=== PATIENT | female | born 1985 | race Caucasian/White ===

== ENCOUNTER → 2017-04-05 03:47 | Observation (INO) ==
[2017-04-05 00:57] LABS: Bilirubin,Urine Negative (Negative); Blood,Urine Negative (Negative); Clarity,Urine Cloudy (Clear); Color,Urine Yellow (Yellow); Glucose,Urine (UA) Normal (Normal); Ketones,Urine Negative (Negative); Leukocyte Esterase,Urine Small (Negative); Nitrite,Urine Negative (Negative); Protein,Urine Negative (Neg-Trace); Urobilinogen,Urine Normal (Normal)
[2017-04-05 01:00] LABS: Bacteria,Urine Few per hpf (None-Few); Hyaline Casts,Urine None Seen per lpf (None-Few); Squamous Epithelial Cell,Urine Many per lpf (None-Few)
[2017-04-05 01:05] LABS: Amphetamine Screen,Urine Negative ng/mL (Cutoff=1000); Barbiturate Screen,Urine Negative ng/mL (Cutoff=200); Benzodiazepines Screen,Urine Negative ng/mL (Cutoff=200); Cannabinoid Screen,Urine Negative ng/mL (Cutoff = 50); Cocaine Screen,Urine Negative ng/mL (Cutoff= 300); Opiate Screen,Urine Negative ng/mL (Cutoff=300); Phencyclidine Screen,Urine Negative ng/mL (Cutoff=25)
[2017-04-05 01:09] LABS: Calcium Oxalate Crystals,Urine Present
[2017-04-05 01:10] LABS: RBC,Urine 0-3 per hpf (0-3)
[2017-04-05 01:15] LABS: Basophils % 0.1 %; Eosinophils # 0.1 K/mcL (0.0-0.6); Eosinophils % 0.6 %; Hematocrit 34.1 % (35.3-44.9); Hemoglobin 11.3 g/dL (11.5-15.4); Immature Granulocytes % 0.6 % (0-4); Lymphocytes # 2.2 K/mcL (0.6-4.6); Lymphocytes % 15.7 %; Mean Corpuscular HGB Conc 33.1 g/dL (31.6-35.5); Mean Corpuscular Hemoglobin 29.3 pg (28.0-33.3); Mean Corpuscular Volume 88.3 fL (83.0-100.0); Mean Platelet Volume 11.1 fL (9.4-12.4); Monocytes # 0.6 K/mcL (0.0-1.3); Monocytes % 4.2 %; Neutrophils # 10.9 K/mcL (1.6-8.9); Platelet Count 190 K/mcL (140-400); Red Blood Count 3.86 M/mcL (3.82-4.97); Red Cell Distribution Width 14.6 % (11.5-14.5); Segmented Neutrophils % 78.8 %
[2017-04-05 01:29] LABS: Alanine Aminotransferase 10 Units/L (0-55); Aspartate Amino Transferase 17 Units/L (5-34); BUN/Creatinine Ratio 10 (6-26); Blood Urea Nitrogen 7 mg/dL (7-20); Lactate Dehydrogenase 149 Units/L (159-327); Uric Acid 6.4 mg/dL (2.6-6.0); eGFR For African Americans > 60 (> 60); eGFR For Non-African Americans > 60 (> 60)
--- NOTE | 2017-04-05 03:38 | OB/GYN Progress Note ---
Date of Encounter: 04/05/17 Time of Encounter: 03:34 - Assessment and Plan (1) Hypertension affecting in third trimester Current Visit: Yes Status: Acute Blood pressure elevated in triage - given po labetalol, returned to normal level Headache in triage - 1 dose nuabain given, headache resolved Nausea in triage - zofran given x 1, nausea resolved Pre-eclampsia labs - All normal except for uric acid which was mildly elevated Reactive NST Discharge home with blood pressure cuff kit Rx and Rx for labetatolol Discussed pre-eclampsia precautions and blood pressure parameters. Follow up in office in 1 week for routinely scheduled and prn POC per consult with Dr Diamond (2) 32 weeks gestation of Current Visit: Yes Status: Acute Subjective - Subjective Principal diagnosis: HTN and Headache in Interval history: Ms Nina is a 31 year old patient of Dr Mcgowan who presents to labor and delivery triage with c/o severe headache. She states that she has run out of her migraine medication. She states positive movement. She denies vision changes, epigastric pain, vaginal bleeding, vaginal contractions, and vaginal discharge. She has gestational diabetes with this and takes glyburide PRN due to it dropping her blood sugar per patient report. She states she had hypertension in her last and was on medication. Antepartum ROS: new complaints, movement normal, no loss of fluid, no vaginal bleeding, no contractions Objective - Exam FHR: auscultation normal, category 1 FHR comments: Reactive Category I FHTs 140 with moderate variability and 15 x 15 accels with no decels. Auscultation: bilateral: normal Abdomen: Present: normal appearance, soft, gravid. Absent: rigidity, tenderness Uterus: Present: normal. Absent: firm, tenderness - Labs Labs: Abnormal lab results WBC 13.9 K/mcL (4.3-11.1) H 04/05/17 01:09 Hgb 11.3 g/dL (11.5-15.4) L 04/05/17 01:09 Hct 34.1 % (35.3-44.9) L 04/05/17 01:09 RDW 14.6 % (11.5-14.5) H 04/05/17 01:09 Neutrophils # 10.9 K/mcL (1.6-8.9) H 04/05/17 01:09 Uric Acid 6.4 mg/dL (2.6-6.0) H 04/05/17 01:09 Lactate Dehydrogenase 149 Units/L (159-327) L 04/05/17 01:09 Urine Clarity Cloudy (Clear) A 04/04/17 23:45 Ur Leukocyte Esterase Small (Negative) H 04/04/17 23:45 Urine Microscopic WBC 5-15 per hpf (0-3) H 04/04/17 23:45 Ur Squamous Epith Cells Many per lpf (None-Few) H 04/04/17 23:45 Ur Culture Indicated? YES (NO) A 04/04/17 23:45
[~2017-04-05 03:47] MED LIST: *HR* Nalbuphine 20 MG/ML AMPUL IVP ONE; Acetaminophen/Butalbital/CaffeineTABLET PO PRN; Ondansetron 4 MG/2 ML VIAL IVP ONE
== END | disposition home or self-care (01) ==
LOC: 1NENULAB
PROVIDERS: ADMIT Obstetrics & Gynecology; ATTEND Obstetrics & Gynecology

== ENCOUNTER → 2017-04-07 15:29 | Observation (INO) ==
[2017-04-07 14:46] LABS: Basophils % 0.2 %; Eosinophils # 0.1 K/mcL (0.0-0.6); Eosinophils % 0.9 %; Hematocrit 33.8 % (35.3-44.9); Immature Granulocytes % 0.5 % (0-4); Mean Corpuscular HGB Conc 32.5 g/dL (31.6-35.5); Mean Corpuscular Hemoglobin 29.1 pg (28.0-33.3); Mean Corpuscular Volume 89.4 fL (83.0-100.0); Mean Platelet Volume 11.6 fL (9.4-12.4); Monocytes # 0.7 K/mcL (0.0-1.3); Monocytes % 6.3 %; Neutrophils # 8.1 K/mcL (1.6-8.9); Platelet Count 206 K/mcL (140-400); Red Blood Count 3.78 M/mcL (3.82-4.97); Red Cell Distribution Width 14.6 % (11.5-14.5); Segmented Neutrophils % 74.1 %
[2017-04-07 14:58] LABS: Alanine Aminotransferase 8 Units/L (0-55); Aspartate Amino Transferase 11 Units/L (5-34); BUN/Creatinine Ratio 13 (6-26); Blood Urea Nitrogen 8 mg/dL (7-20); Lactate Dehydrogenase 127 Units/L (159-327); Uric Acid 5.8 mg/dL (2.6-6.0); eGFR For African Americans > 60 (> 60); eGFR For Non-African Americans > 60 (> 60)
--- NOTE | 2017-04-07 15:16 | Discharge Summary ---
Date of Encounter: 04/07/17 Time of Encounter: 15:15 - Discharge Diagnosis (1) 32 weeks gestation of Priority: Primary Status: Acute Comments: admitted for PIH evaluation (2) Hypertension affecting in third trimester Priority: Secondary Status: Acute Comments: Patient currently on 200mg labetalol po BID BPs and pIH labs wnl - Discharge Medications Home Medications: DiphenhydraMINE [Benadryl] 25 mg PO PRN PRN 04/04/17 [History] GlyBURIDE 1 tab PO DAILY 04/04/17 [History] Dha 1 tab PO DAILY 04/04/17 [History] Promethazine [Phenergan] 1 tab PO PRN PRN 04/04/17 [History] Labetalol [Trandate] 200 mg PO BID #60 tablet 04/05/17 [Rx] Allergies/Adverse Reactions: 3 Allergy/AdvReac Type Severity Reaction Status Date / Time sumatriptan [From Imitrex] Allergy Anxiety Verified 04/04/17 23:37 clavulanic acid AdvReac Vomiting Verified 04/04/17 23:37 [From Augmentin] metoclopramide [From Reglan] AdvReac Vomiting Verified 04/04/17 23:37 Data Procedures and tests throughout hospitalization: Laboratory Tests 04/07/17 04/07/17 14:08 14:08 WBC 10.9 RBC 3.78 L Hgb 11.0 L Hct 33.8 L MCV 89.4 MCH 29.1 MCHC 32.5 RDW 14.6 H Plt Count 206 MPV 11.6 Immature Gran % 0.5 Seg Neutrophils % 74.1 Lymphocytes % 18.0 Monocytes % 6.3 Eosinophils % 0.9 Basophils % 0.2 Neutrophils # 8.1 Lymphocytes # 2.0 Monocytes # 0.7 Eosinophils # 0.1 Basophils # 0.0 BUN 8 Creatinine 0.62 Est GFR ( Amer) > 60 Est GFR (Non-Af Amer) > 60 BUN/Creatinine Ratio 13 Uric Acid 5.8 AST 11 ALT 8 Lactate Dehydrogenase 127 L Labs on day of discharge: Labs from last 24 hours 04/07/17 04/07/17 14:08 14:08 WBC 10.9 RBC 3.78 L Hgb 11.0 L Hct 33.8 L MCV 89.4 MCH 29.1 MCHC 32.5 RDW 14.6 H Plt Count 206 MPV 11.6 Immature Gran % 0.5 Seg Neutrophils % 74.1 Lymphocytes % 18.0 Monocytes % 6.3 Eosinophils % 0.9 Basophils % 0.2 Neutrophils # 8.1 Lymphocytes # 2.0 Monocytes # 0.7 Eosinophils # 0.1 Basophils # 0.0 BUN 8 Creatinine 0.62 Est GFR ( Amer) > 60 Est GFR (Non-Af Amer) > 60 BUN/Creatinine Ratio 13 Uric Acid 5.8 AST 11 ALT 8 Lactate Dehydrogenase 127 L Date of admission: 04/07/17 13:37 Primary care physician: Antoinette Murillo CNP Discharging clinician: Elo Tadeo Anticipated date of discharge: 04/07/17 - Patient Status Disposition: Home, Self-Care Condition: Good Functional capacity at discharge: independent ambulation - Discharge Instructions Follow Up With: Antoinette Murillo CNP [Primary Care Provider] - Иван Tan MD [Partnered Physician] - - Diet and Activity Activity: increase activity as tolerated Diet: regular diet 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 Patient denies Headache, dizziness or blurred vision. Patient denies any epigastric pain. Patient reports +FM, denies contractions, LOF or VB. Patient is currently on Labetalol 200mg po bid for gestational hypertension. Patient is scheduled to see Dr. Tan on Monday. BPs and PIH labs WNL. Time Attestation: Total time spent providing and/or coordinating discharge services: Time Spent: Less than 30 minutes Exam - Constitutional General appearance IM: A&O X 3, morbidly obese, pleasant, answers questions appropriately - Respiratory Respiratory exam: Present: CTAB - Cardiovascular Cardiovascular exam IM: Present: RRR, +S1, +S2 - GI/Abdominal GI/Abdominal exam IM: normal bowel sounds - Extremities Exam Extremities exam IM: Present: full ROM, normal capillary refill, normal inspection - Neurological Exam Neurological exam: alert, oriented X3, reflexes normal (FHR 135 bpm moderate variability no contractions noted) - VTE Reasons for not Prescribing Prophylaxis: Treatment not Indicated - Low risk for VTE
[2017-04-07 16:10] LABS: Amphetamine Screen,Urine Negative ng/mL (Cutoff=1000); Barbiturate Screen,Urine Negative ng/mL (Cutoff=200); Benzodiazepines Screen,Urine Negative ng/mL (Cutoff=200); Cannabinoid Screen,Urine Negative ng/mL (Cutoff = 50); Cocaine Screen,Urine Negative ng/mL (Cutoff= 300); Opiate Screen,Urine Negative ng/mL (Cutoff=300); Phencyclidine Screen,Urine Negative ng/mL (Cutoff=25)
== END | disposition home or self-care (01) ==
LOC: 1NENULAB
PROVIDERS: ADMIT Student in an Organized Health Care Education/Training Program; ATTEND Student in an Organized Health Care Education/Training Program

== ENCOUNTER → 2017-04-26 13:05 | Observation (INO) ==
[2017-04-26 12:26] LABS: Basophils % 0.2 %; Eosinophils # 0.1 K/mcL (0.0-0.6); Eosinophils % 0.9 %; Hematocrit 35.9 % (35.3-44.9); Hemoglobin 11.9 g/dL (11.5-15.4); Immature Granulocytes % 0.8 % (0-4); Lymphocytes # 2.3 K/mcL (0.6-4.6); Lymphocytes % 19.4 %; Mean Corpuscular HGB Conc 33.1 g/dL (31.6-35.5); Mean Corpuscular Volume 90.4 fL (83.0-100.0); Mean Platelet Volume 11.3 fL (9.4-12.4); Monocytes # 0.7 K/mcL (0.0-1.3); Monocytes % 5.8 %; Neutrophils # 8.7 K/mcL (1.6-8.9); Platelet Count 221 K/mcL (140-400); Red Blood Count 3.97 M/mcL (3.82-4.97); Red Cell Distribution Width 15.1 % (11.5-14.5); Segmented Neutrophils % 72.9 %
[2017-04-26 12:37] LABS: Amphetamine Screen,Urine Negative ng/mL (Cutoff=1000); Barbiturate Screen,Urine Negative ng/mL (Cutoff=200); Benzodiazepines Screen,Urine Negative ng/mL (Cutoff=200); Cannabinoid Screen,Urine Negative ng/mL (Cutoff = 50); Cocaine Screen,Urine Negative ng/mL (Cutoff= 300); Opiate Screen,Urine Negative ng/mL (Cutoff=300); Phencyclidine Screen,Urine Negative ng/mL (Cutoff=25)
[2017-04-26 12:39] LABS: Alanine Aminotransferase 8 Units/L (0-55); Aspartate Amino Transferase 12 Units/L (5-34); BUN/Creatinine Ratio 11 (6-26); Blood Urea Nitrogen 7 mg/dL (7-20); Lactate Dehydrogenase 141 Units/L (159-327); Uric Acid 5.4 mg/dL (2.6-6.0); eGFR For African Americans > 60 (> 60); eGFR For Non-African Americans > 60 (> 60)
[2017-04-26 12:40] LABS: Protein/Creatinine Ratio,Urine 0.14 mg/mg (0-0.20)
--- NOTE | 2017-04-26 12:49 | Discharge Summary ---
Date of Encounter: 04/26/17 Time of Encounter: 12:49 - Discharge Diagnosis (1) 35 weeks gestation of Priority: Primary Status: Acute Comments: admitted for observation (2) Chronic hypertension affecting Priority: Secondary Status: Acute Comments: Continue prescription per Dr. Tan's orders. - Discharge Medications Home Medications: Dha 1 tab PO DAILY 04/04/17 [History] Promethazine [Phenergan] 1 tab PO PRN PRN 04/04/17 [History] Acetaminophen [Tylenol] 1,000 mg PO Q6HR PRN 04/26/17 [History] Acetaminophen/Butalbital/Caffe [Fioricet] 1 each PO Q6H PRN 04/26/17 [History] Labetalol [Trandate] 200 mg PO TID 04/26/17 [History] Allergies/Adverse Reactions: 3 Allergy/AdvReac Type Severity Reaction Status Date / Time sumatriptan [From Imitrex] Allergy Anxiety Verified 04/04/17 23:37 tramadol Allergy See Verified 04/26/17 12:14 Comments clavulanic acid AdvReac Vomiting Verified 04/04/17 23:37 [From Augmentin] metoclopramide [From Reglan] AdvReac Vomiting Verified 04/04/17 23:37 Data Procedures and tests throughout hospitalization: Laboratory Tests 04/26/17 04/26/17 04/26/17 12:08 12:08 12:08 WBC 11.9 H RBC 3.97 Hgb 11.9 Hct 35.9 MCV 90.4 MCH 30.0 MCHC 33.1 RDW 15.1 H Plt Count 221 MPV 11.3 Immature Gran % 0.8 Seg Neutrophils % 72.9 Lymphocytes % 19.4 Monocytes % 5.8 Eosinophils % 0.9 Basophils % 0.2 Neutrophils # 8.7 Lymphocytes # 2.3 Monocytes # 0.7 Eosinophils # 0.1 Basophils # 0.0 BUN Creatinine Est GFR ( Amer) Est GFR (Non-Af Amer) BUN/Creatinine Ratio Uric Acid AST ALT Lactate Dehydrogenase Urine Creatinine 236 Protein/Creatinin Ratio 0.14 Urine Total Protein 34 H Urine Opiates Screen Negative Ur Barbiturates Screen Negative Ur Phencyclidine Scrn Negative Ur Amphetamines Screen Negative U Benzodiazepines Scrn Negative Urine Cocaine Screen Negative U Marijuana (THC) Screen Negative 04/26/17 12:08 WBC RBC Hgb Hct MCV MCH MCHC RDW Plt Count MPV Immature Gran % Seg Neutrophils % Lymphocytes % Monocytes % Eosinophils % Basophils % Neutrophils # Lymphocytes # Monocytes # Eosinophils # Basophils # BUN 7 Creatinine 0.62 Est GFR ( Amer) > 60 Est GFR (Non-Af Amer) > 60 BUN/Creatinine Ratio 11 Uric Acid 5.4 AST 12 ALT 8 Lactate Dehydrogenase 141 L Urine Creatinine Protein/Creatinin Ratio Urine Total Protein Urine Opiates Screen Ur Barbiturates Screen Ur Phencyclidine Scrn Ur Amphetamines Screen U Benzodiazepines Scrn Urine Cocaine Screen U Marijuana (THC) Screen Labs on day of discharge: Labs from last 24 hours 04/26/17 04/26/17 04/26/17 12:08 12:08 12:08 WBC 11.9 H RBC 3.97 Hgb 11.9 Hct 35.9 MCV 90.4 MCH 30.0 MCHC 33.1 RDW 15.1 H Plt Count 221 MPV 11.3 Immature Gran % 0.8 Seg Neutrophils % 72.9 Lymphocytes % 19.4 Monocytes % 5.8 Eosinophils % 0.9 Basophils % 0.2 Neutrophils # 8.7 Lymphocytes # 2.3 Monocytes # 0.7 Eosinophils # 0.1 Basophils # 0.0 BUN 7 Creatinine 0.62 Est GFR ( Amer) > 60 Est GFR (Non-Af Amer) > 60 BUN/Creatinine Ratio 11 Uric Acid 5.4 AST 12 ALT 8 Lactate Dehydrogenase 141 L Urine Creatinine 236 Protein/Creatinin Ratio 0.14 Urine Total Protein 34 H Urine Opiates Screen Ur Barbiturates Screen Ur Phencyclidine Scrn Ur Amphetamines Screen U Benzodiazepines Scrn Urine Cocaine Screen U Marijuana (THC) Screen 04/26/17 12:08 WBC RBC Hgb Hct MCV MCH MCHC RDW Plt Count MPV Immature Gran % Seg Neutrophils % Lymphocytes % Monocytes % Eosinophils % Basophils % Neutrophils # Lymphocytes # Monocytes # Eosinophils # Basophils # BUN Creatinine Est GFR ( Amer) Est GFR (Non-Af Amer) BUN/Creatinine Ratio Uric Acid AST ALT Lactate Dehydrogenase Urine Creatinine Protein/Creatinin Ratio Urine Total Protein Urine Opiates Screen Negative Ur Barbiturates Screen Negative Ur Phencyclidine Scrn Negative Ur Amphetamines Screen Negative U Benzodiazepines Scrn Negative Urine Cocaine Screen Negative U Marijuana (THC) Screen Negative Date of admission: 04/26/17 11:46 Primary care physician: PCP NONE Discharging clinician: Elo Tadeo Anticipated date of discharge: 04/26/17 - Patient Status Disposition: Home, Self-Care Condition: Good Functional capacity at discharge: independent ambulation - Discharge Instructions Follow Up With: NONE,PCP [Primary Care Provider] - Иван Tan MD [Partnered Physician] - - Diet and Activity Activity: increase activity as tolerated Diet: regular diet 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 CAt. 1 tracing no contractions. - VTE Reasons for not Prescribing Prophylaxis: Treatment not Indicated - Low risk for VTE
== END | disposition home or self-care (01) ==
LOC: 1NENULAB
PROVIDERS: ADMIT Obstetrics & Gynecology; ATTEND Obstetrics & Gynecology

== ENCOUNTER 2017-04-29 07:41 | Inpatient (IN) ==
[2017-04-29 02:20] LABS: Basophils % 0.1 %; Eosinophils # 0.2 K/mcL (0.0-0.6); Eosinophils % 1.1 %; Hematocrit 33.4 % (35.3-44.9); Hemoglobin 11.3 g/dL (11.5-15.4); Immature Granulocytes % 0.6 % (0-4); Lymphocytes # 2.9 K/mcL (0.6-4.6); Lymphocytes % 20.4 %; Mean Corpuscular HGB Conc 33.8 g/dL (31.6-35.5); Mean Corpuscular Hemoglobin 30.4 pg (28.0-33.3); Mean Corpuscular Volume 89.8 fL (83.0-100.0); Mean Platelet Volume 11.2 fL (9.4-12.4); Monocytes # 0.8 K/mcL (0.0-1.3); Monocytes % 5.8 %; Neutrophils # 10.1 K/mcL (1.6-8.9); Platelet Count 196 K/mcL (140-400); Red Blood Count 3.72 M/mcL (3.82-4.97); Red Cell Distribution Width 15.1 % (11.5-14.5)
[2017-04-29 02:29] LABS: Amphetamine Screen,Urine Negative ng/mL (Cutoff=1000); Barbiturate Screen,Urine Negative ng/mL (Cutoff=200); Benzodiazepines Screen,Urine Negative ng/mL (Cutoff=200); Cannabinoid Screen,Urine Negative ng/mL (Cutoff = 50); Cocaine Screen,Urine Negative ng/mL (Cutoff= 300); Opiate Screen,Urine Negative ng/mL (Cutoff=300); Phencyclidine Screen,Urine Negative ng/mL (Cutoff=25)
[2017-04-29 02:31] LABS: Creatinine,Urine 27 mg/dL; Protein/Creatinine Ratio,Urine 0.26 mg/mg (0-0.20)
[2017-04-29 02:35] LABS: Alanine Aminotransferase 8 Units/L (0-55); Aspartate Amino Transferase 14 Units/L (5-34); BUN/Creatinine Ratio 15 (6-26); Blood Urea Nitrogen 10 mg/dL (7-20); Lactate Dehydrogenase 173 Units/L (159-327); Uric Acid 5.4 mg/dL (2.6-6.0); eGFR For African Americans > 60 (> 60); eGFR For Non-African Americans > 60 (> 60)
--- NOTE | 2017-04-29 03:46 | OB/GYN Progress Note ---
Date of Encounter: 04/29/17 Time of Encounter: 03:36 - Assessment and Plan (1) Headache above the eye region Current Visit: Yes Status: Acute Fioricet given. Will wait to see if JIN improves. (2) NIDDY (non-insulin dependent diabetes mellitus in young) Current Visit: Yes Status: Acute Diet controlled at this time. Will get fasting glucose in am. (3) Obesity affecting in third trimester, antepartum Current Visit: Yes Status: Acute (4) Previous delivery affecting Current Visit: Yes Status: Acute Plan for repeat c/s at 39 weeks or sooner depending on BP control. (5) 35 weeks gestation of Current Visit: No Status: Acute (6) Hypertension affecting in third trimester Current Visit: No Status: Acute BP's variable at this time 120's/80's-160's/90's. Pt took labetalol as directed prior to arriving in triage. PIH labs WNL. Will treat headache and monitor BP' s. If BP becomes persistent severe range will treat with IV medications. Dr. Tan to see pt in am unless BP's become severe. Subjective - Subjective Interval history: 31 year-old presenting for headache, high blood pressure at home, and not feeling well. She reports increased SOB with ambulation for the last few weeks. She has had a headache for several days that has not improved with tylenol or fioricet today. She does have a history of migraines but states this headache feels different. She states she wants to have her baby and has been asking Dr. Tan to call [facility] to see if she can be delivered now. She states "I just feel miserable". No other specific complaints. No vision changes. She does admit to intermittent RUQ pain occassionally. Good FM. No LOF, VB or contractions. This is complicated by obesity, migraines, NIDDM,, and gestational hypertension. Pt is currently taking labetalol 200mg TID. She has stopped taking glyburide due to hypoglycemia. Antepartum ROS: movement normal, no loss of fluid, no vaginal bleeding, no contractions Objective - Vital Signs Vital Signs: Intake and Output 04/28/17 04/28/17 04/29/17 15:59 23:59 07:59 Other: Weight 149.3 kg Patient Weight 04/29/17 23:59 Weight 149.3 kg - Exam FHR: category 1 FHR comments: NST reactive, 135 BPM baseline Auscultation: bilateral: normal Abdomen: Present: soft, gravid. Absent: tenderness Comments: reflexes normal, no clonus - Labs Labs: Abnormal lab results WBC 14.1 K/mcL (4.3-11.1) H 04/29/17 01:45 RBC 3.72 M/mcL (3.82-4.97) L 04/29/17 01:45 Hgb 11.3 g/dL (11.5-15.4) L 04/29/17 01:45 Hct 33.4 % (35.3-44.9) L 04/29/17 01:45 RDW 15.1 % (11.5-14.5) H 04/29/17 01:45 Neutrophils # 10.1 K/mcL (1.6-8.9) H 04/29/17 01:45 Protein/Creatinin Ratio 0.26 mg/mg (0-0.20) H 04/29/17 01:45
--- NOTE | 2017-04-29 06:02 | OB/GYN History & Physical ---
Date of Encounter: 04/29/17 Time of Encounter: 05:55 Assessment and Plan (1) Non-insulin dependent type 2 diabetes mellitus Current visit: Yes Status: Acute (2) 35 weeks gestation of Current visit: No Status: Acute (3) Chronic hypertension affecting Current visit: No Status: Acute History of Present Illness Chief complaint: Headache, Elevated blood pressures HPI: Ms. Nina is a 31 year old female female at 35w6d presents with c/o elevated BP's at home 150's/80's and severe JIN that wouldn't resolve. She denies worsening swelling or RUQ pain. She has been on Labetalol 200 mg TID. After arrival BP's became quite labile with highest BP 175/132. She also had 172/123, and 157/111. She was given additional Labetalol and BP's are currently improved 130's/70's. Past Med Surg Social Fam HX - Past Medical History Source: patient, old records reviewed Medical history: diabetes, hypertension, migraine Psychiatric history: anxiety, depression - Past Surgical History Surgical History: , cholecystectomy, orthopedic, other, sinus surgery, other - Social History Smoking Status: Current every day smoker Packs per day: 6 cigs Smokeless Tobacco Status: No Alcohol use: none Drug use: none - Family History Father Family Member Ethnicity: Non- Living Status: Still Living Hx Family Cardiac Disorders: No Hx Family Respiratory Disorders: No Hx Family Cancer: No Hx Family GI Disorders: No Hx Family Genitourinary Disorders: No Hx Family Endocrine Disorder: Yes (DM) Hx Family Musculoskeletal Disorders: No Hx Family Neuromuscular Disorders: No Hx Family Neurologic Disorders: No Hx Family HEENT Disorders: No Hx Family Autoimmune Disorders: No Hx Family Reproductive Disorders: No Hx Family Psychosocial Disorders: No Hx Family Medical Disorders: Yes ("blood clots") Obstetrical History - Pregnancies : 2 Para: 1 Medications and Allergies Dha 1 tab PO DAILY 04/04/17 [History] Promethazine [Phenergan] 1 tab PO PRN PRN 04/04/17 [History] Acetaminophen [Tylenol] 1,000 mg PO Q6HR PRN 04/26/17 [History] Acetaminophen/Butalbital/Caffe [Fioricet] 1 each PO Q6H PRN 04/26/17 [History] Labetalol [Trandate] 200 mg PO TID 04/26/17 [History] 3 Allergy/AdvReac Type Severity Reaction Status Date / Time sumatriptan [From Imitrex] Allergy Anxiety Verified 04/04/17 23:37 tramadol Allergy See Verified 04/26/17 12:14 Comments clavulanic acid AdvReac Vomiting Verified 04/04/17 23:37 [From Augmentin] metoclopramide [From Reglan] AdvReac Vomiting Verified 04/04/17 23:37 Exam - Constitutional Constitutional: well developed - HEENT HEENT: EOMI, PERRL - Neck Neck exam: full ROM - Lungs Respiratory exam: CTAB - Cardiovascular Cardiovascular exam: RRR - Breasts Breast: bilateral: normal - Abdomen Abdomen: Present: bowel sounds normal, gravid - Extremities Extremities exam: full ROM Deep Tendon Reflex Grade: 2+ Normal Results Result Diagrams: 04/29/17 01:45 04/29/17 01:45 Abnormal lab results WBC 14.1 K/mcL (4.3-11.1) H 04/29/17 01:45 RBC 3.72 M/mcL (3.82-4.97) L 04/29/17 01:45 Hgb 11.3 g/dL (11.5-15.4) L 04/29/17 01:45 Hct 33.4 % (35.3-44.9) L 04/29/17 01:45 RDW 15.1 % (11.5-14.5) H 04/29/17 01:45 Neutrophils # 10.1 K/mcL (1.6-8.9) H 04/29/17 01:45 Protein/Creatinin Ratio 0.26 mg/mg (0-0.20) H 04/29/17 01:45 All other labs normal. - VTE Reasons for not Prescribing Prophylaxis: Treatment not Indicated - Low risk for VTE
[2017-04-29] MEDS: Magnesium Sulfate 20 gm/500mL 20 GM/500 ML IV.SOLN IVC SCH ×2 (06:41→17:54)
--- NOTE | 2017-04-29 07:27 | Anesthesia Evaluation PreOp ---
Date of Encounter: 04/29/17 Time of Encounter: 07:25 - Past History Planned Operation: C/S with tubal ligation Cardiac History: HTN ( induced) Pulmonary History: Smoker, Pack/yr (5) LIFE SKILLS COORDINATOR History: Denies Any Significant HX Other Medical History: Diabetes Type II (gestational) Anesthesia History: No Prior Anesthetic Complications, Past Anesthesia (T&A, sinus, tympanoplasty, akash, C/S) : Yes Alcohol Use: none Drug use: none Medications and Allergies Dha 1 tab PO DAILY 04/04/17 [History] Promethazine [Phenergan] 1 tab PO PRN PRN 04/04/17 [History] Acetaminophen [Tylenol] 1,000 mg PO Q6HR PRN 04/26/17 [History] Acetaminophen/Butalbital/Caffe [Fioricet] 1 each PO Q6H PRN 04/26/17 [History] Labetalol [Trandate] 200 mg PO TID 04/26/17 [History] 3 Allergy/AdvReac Type Severity Reaction Status Date / Time sumatriptan [From Imitrex] Allergy Anxiety Verified 04/04/17 23:37 tramadol Allergy See Verified 04/26/17 12:14 Comments clavulanic acid AdvReac Vomiting Verified 04/04/17 23:37 [From Augmentin] metoclopramide [From Reglan] AdvReac Vomiting Verified 04/04/17 23:37 - Meds/Allergy Pre-op Review Medications Reviewed: Yes Allergies Reviewed: Yes Beta Blockers on Current Med List: No Anesthesia Results - Labs 04/29/17 01:45 04/29/17 01:45 Anesthesia Exam Weight: 149kg NPO (# of Hours): >8 - HEENT Pupil (Motor): EOMI Mallampati: II Teeth: Poor dentition Oral Opening: Greater than 3 - LIFE SKILLS COORDINATOR LOC: Oriented LIFE SKILLS COORDINATOR Motor: Normal RUE, Normal LUE, Normal RLE, Normal LLE, Normal Face LIFE SKILLS COORDINATOR Sensory: Normal: RUE, LUE, RLE, LLE, Face - Cardiac Rhythm: Regular Murmur: None - Pulmonary Breath Sounds: bilateral Clear Respiratory Effort: Symmetrical Anesthesia Assess/Plan ASA Score: 3 (PIH, Gestational DM, morbid obesity) Anesthetic Plan: Regional Monitoring Plan: Standard Monitors Recovery Plan: PACU (Discussed risks of SAB, agrees to proceed)
[~2017-04-29 07:41] MED LIST changes: -*HR* Nalbuphine 20 MG/ML AMPUL IVP ONE; +CeFAZolin Pre 3,000 MG/100 ML 3,000 MG/100 ML BAG IVPB ONE; +Famotidine 20 MG/2 ML VIAL IVP ONE; -Ondansetron 4 MG/2 ML VIAL IVP ONE; +Oxytocin 20 units/ LR 1000 mL 20 UNIT/1,000 ML BAG IVC ONE; +Prochlorperazine 10 MG/2 ML VIAL IVP PRN; +Ringers Solution, Lactated 1,000 ML ONE
[2017-04-29] MEDS ORDERED: Ringers Solution, Lactated 1,000 ML IVC SCH ×2 (07:45→09:15)
[2017-04-29] MEDS ORDERED: *HR* Morphine Sulfate/PF 5 MG/10 ML AMPUL ONE (09:03)
[2017-04-29] MEDS ORDERED: Ondansetron 4 MG/2 ML VIAL IVP ONE (09:12)
[2017-04-29] MEDS ORDERED: *HR* Promethazine 25 MG/ML VIAL IVP PRN (09:12)
[2017-04-29] MEDS ORDERED: *HR* HYDROmorphone (PF) 1 MG/ML SYRINGE IVP PRN (09:12)
[2017-04-29] MEDS ORDERED: *HR* Meperidine 25 MG/ML SYRINGE IVP PRN (09:12)
--- NOTE | 2017-04-29 09:18 | Anesthesia Procedures ---
Date of Encounter: 04/29/17 Time of Encounter: 09:30 Procedures: Anesthesia - Epidural/Spinal Patient ID/Chart reviewed: Yes Patient examined: Yes OB Eval: Gestational age: 35.6 OB Eval: : 2 OB Eval: Hx Para: 1 OB Eval: Contractions: Non-stressed pattern Consent Obtained: Yes Supplemental Oxygen Rate (L/min): 4 Site Prep: Aseptic Technique, Sterile prep and drape, Povidone-Iodine 1% Patient position: upright Local Anesthetic: Lidocaine 1% Amount of Local Anesthetic used: 3 Interspace Used: L4-L5 Loss of Resistance (PATRICK): No Blood: No CSF: Yes Paresthesia: No Spinal Needle Gauge: 25 Spinal Dose: Bupivicaine 0.75% 1.6ml morphine 250mcg Procedure: Spinal performed in upright position 1st pass without any immediate noted complications. VSS throughout. Pt supine for repeat ceserean section. Vitals + FHT's: See anesthesia record
[2017-04-29] MEDS ORDERED: *HR* Oxytocin 10 UNIT/ML VIAL IM ONE (09:41)
[2017-04-29] MEDS ORDERED: Ondansetron 4 MG/2 ML VIAL ONE (09:41)
[2017-04-29] MEDS ORDERED: EPHEDrine 50 MG/ML VIAL ONE (09:54)
--- NOTE | 2017-04-29 10:49 | OB/GYN Procedure Note ---
Section - Date of procedure: 04/29/17 Preop diagnosis: desires repeat , desires sterilization, other ( Chronic hypertension with superimposed severe preeclampsia) Post-op diagnosis: same Procedure: repeat low transverse, bilateral tubal ligation Surgeon: Иван Tan Estimated blood loss (cc): 500 Anesthesiologist: Jeramy Samuels Outpatient Services Director: Mane Mosqueda Anesthesia Type: Spinal Disposition: L&D Recovery Room - (s) A Infant Delivery Date: 04/29/17 Delivery Time: 10:00 Presentation: vertex Position: OA Gender: Female Gram Weight: 3.24 kg at 1 minute: 9 at 5 minutes: 9 Shoulder Dystocia: not encountered Cord: nuchal cord, 3 umbilical vessels - Narrative Narrative: Patient's 31-year-old 2 now para 2 female presented to labor and delivery with markedly elevated blood pressures highest was 170/130. She also severe headache that would not resolve with Tylenol. Her protein contamination was 0.2. has been concave by chronic hypertension for which she takes labetalol 200 3 times a day as well as gestational diabetes which is diet controlled. She had been doing quite well with blood sugar control and her blood pressures remained quite good until presentation this morning. We discussed with patient risks of prematurity versus risks of continuing with superimposed severe preeclampsia on her chronic hypertension with risk of abruption stroke or seizures. She is aware risks of prematurity and desired to proceed with repeat section. She also expressed strong desire for permanent sterilization signed appropriate consent. Description procedure: Patient was taken operating room where spinal anesthesia was administered. She is prepped draped in usual sterile fashion bladder was drained of clear urine. Scalp was used to make Pfannenstiel skin incision which was sharply taken down the rectus fascia. Fascia was incised midline fascial incision was extended bilaterally. Rectus muscles divided and peritoneum was entered bluntly. Bladder blade was placed and bladder flap was developed and lower uterine segment. Scalpel was used to make a low transverse uterine incision which was extended bluntly bilaterally. Membranes were ruptured clear fluid and was delivered from vertex presentation. There was a loose nuchal cord 1 which was delivered through. Cord was clamped cut and was handed nurse personnel who were in attendance. weight was found to be 7 lbs. 2 oz. with Apgars of 9 at 1 minute and 9 at 5 minutes. Placenta was delivered manually and uterine cavity was massaged free of all residual tissue. Uterus was closed 0 Vicryl running lock stitch second imbricating layer was placed over the first obtain hemostasis. Right fallopian tube was identified and followed out to its fimbriated end was double ligated with oh plain catgut suture and a 3 cm segment of the right fallopian tube was removed. Hemostasis was ensured. Left fallopian tube was followed out to its fimbriated end double ligated with oh plain catgut suture transected and hemostasis was ensured. Uterus was replaced. Fascia was closed 0 Vicryl in running manner area irrigation was performed hemostasis was ensured. Deep subcutaneous tissue was reapproximated with oh plain catgut suture in interrupted manner. Skin edges reapproximated with 4-0 Vicryl. All sponge and instruments counts correct lazaro dressing was applied patient was taken to labor and delivery recovery in stable condition.
[2017-04-29] MEDS ORDERED: Ondansetron 4 MG/2 ML VIAL IVP PRN ×2 (10:54→11:24)
[2017-04-29] MEDS ORDERED: Rho Immune Globulin 1,500 UNIT SYRINGE IM ONE (10:54)
[2017-04-29] MEDS ORDERED: Simethicone 80 MG TAB.CHEW PO PRN (10:54)
[2017-04-29] MEDS ORDERED: Metoclopramide 10 MG/2 ML VIAL IVP PRN (10:54)
[2017-04-29] MEDS ORDERED: *HR* Morphine 2 MG/ML SYRINGE IVP PRN (11:24)
[2017-04-29] MEDS: Oxytocin 20 units/ LR 1000 mL 20 UNIT/1,000 ML BAG IVC SCH (12:32)
[2017-04-29] MEDS: *HR* HYDROmorphone (PF) 1 MG/ML SYRINGE IVP PRN ×5 (12:48→22:07)
[2017-04-29] MEDS ORDERED: Calcium Gluconate 1,000 MG in D5% in Water 100 ML IVPB PRN (14:45)
[2017-04-29] MEDS ORDERED: Calcium Gluconate 1,000 MG/10 ML VIAL IVPB PRN (15:12)
--- NOTE | 2017-04-29 18:42 | Anesthesia Evaluation Post Op ---
Date of Encounter: 04/29/17 Time of Encounter: 11:30 - Vital Signs Vital Signs: Vital Signs Temperature 97.5 F L 04/29/17 13:15 Pulse Rate 92 04/29/17 13:15 Respiratory Rate 20 04/29/17 13:15 Blood Pressure 123/78 04/29/17 13:15 O2 Sat by Pulse Oximetry 96 04/29/17 13:15 Temperature 97.4 F L 04/29/17 18:38 Pulse Rate 86 04/29/17 18:38 Respiratory Rate 20 04/29/17 18:38 Blood Pressure 112/68 04/29/17 18:38 O2 Sat by Pulse Oximetry 96 04/29/17 18:38 - Lungs Lungs: Clear Ascult./Percussion - Airway Airway: Non-obstructed - Cardiovascular Regular Rate - Mental Status Mental Status: Alert & Oriented, Answers Appropriately - Pain Pain Scale: 3 Pain Scale used: Numeric (1 - 10) - Nausea Vomiting Nausea Vomiting: Not Present - Hydration Hydration: NPO, Arciniega catheter - Discharge PostOp Status: Transfer Patient to floor
[2017-04-29] MEDS ORDERED: Sennosides 8.6 MG TABLET PO PRN (21:00)
[2017-04-30] MEDS: Oxytocin 20 units/ LR 1000 mL 20 UNIT/1,000 ML BAG IVC SCH (00:42)
[2017-04-30] MEDS: Ibuprofen 600 MG TABLET PO PRN ×4 (02:51→21:57)
[2017-04-30] MEDS: *HR* OxyCODONE/APAP 5/325 TABLET PO PRN ×5 (02:52→20:17)
[2017-04-30 06:16] LABS: Basophils % 0.2 %; Eosinophils # 0.1 K/mcL (0.0-0.6); Eosinophils % 0.5 %; Hematocrit 28.7 % (35.3-44.9); Immature Granulocytes % 0.3 % (0-4); Lymphocytes # 1.8 K/mcL (0.6-4.6); Lymphocytes % 13.8 %; Mean Corpuscular HGB Conc 32.8 g/dL (31.6-35.5); Mean Corpuscular Hemoglobin 29.7 pg (28.0-33.3); Mean Corpuscular Volume 90.5 fL (83.0-100.0); Mean Platelet Volume 11.2 fL (9.4-12.4); Monocytes # 0.8 K/mcL (0.0-1.3); Monocytes % 6.5 %; Platelet Count 165 K/mcL (140-400); Red Blood Count 3.17 M/mcL (3.82-4.97); Red Cell Distribution Width 15.3 % (11.5-14.5); Segmented Neutrophils % 78.7 %
[2017-04-30 06:36] LABS: Hemoglobin 9.4 g/dL (11.5-15.4)
--- NOTE | 2017-04-30 12:00 | OB/GYN Progress Note ---
Date of Encounter: 04/30/17 Time of Encounter: 11:56 - Assessment and Plan (1) Non-insulin dependent type 2 diabetes mellitus Current Visit: Yes Status: Acute (2) 35 weeks gestation of Current Visit: No Status: Acute Doing well s/p . Cont. post op care. (3) Chronic hypertension affecting Current Visit: No Status: Acute BP good. Subjective - Subjective Principal diagnosis: S/P Interval history: Doing well without c/o. Good pain control. Regular diet without N/V. Ambulating. Objective - Vital Signs Latest vital signs: Vital Signs Temp Pulse Resp BP Pulse Ox 04/30/17 08:22 97.7 F 88 16 133/74 97 04/30/17 02:50 97.8 F 89 20 130/72 95 04/29/17 23:45 97.9 F 82 16 113/73 96 04/29/17 23:06 108/63 04/29/17 19:45 97.8 F 83 16 97/64 94 04/29/17 18:38 97.4 F L 86 20 112/68 96 04/29/17 17:45 88 16 109/70 04/29/17 16:45 96 16 124/80 04/29/17 15:45 97 14 117/75 04/29/17 14:30 97.7 F 105 20 113/76 97 04/29/17 13:15 97.5 F L 92 20 123/78 96 Intake and Output 04/29/17 04/30/17 04/30/17 23:59 07:59 15:59 Intake Total 2675 / 2675 1190 / 1190 Output Total 250 / 250 450 / 450 550 / 550 Balance 2425 / 2425 740 / 740 -550 / -550 Intake: IV Fluids 1575 / 1575 490 / 490 Magnesium Sulfate Premix 20 gm/ 575 / 575 500mL 20 gm In 500 ml @ 2 GM/HR 50 mls/hr IVC .Q10H [facility] Rx#: [id number] Pitocin 20 unit In 1,000 ml @ 1000 / 1000 490 / 490 125 mls/hr IVC .Q8H [facility] Rx#: [id number] Oral 500 / 500 700 / 700 Free Water 600 / 600 Output: Urine 175 / 175 550 / 550 Catheter 75 / 75 450 / 450 Other: # Voids 1 Weight 147.3 kg Blood Glucose* 102 Patient Weight 04/30/17 23:59 Weight 147.3 kg - Exam Lungs: bilateral: normal Chest: Normal S1, Normal S2 Extremities: Present: normal Abdomen: Present: soft Incision: Present: dressed - Labs Labs: Laboratory Results - last 24 hr 04/29/17 04/29/17 04/30/17 18:22 23:50 05:50 WBC 12.7 H RBC 3.17 L Hgb 9.4 L D Hct 28.7 L MCV 90.5 MCH 29.7 MCHC 32.8 RDW 15.3 H Plt Count 165 MPV 11.2 Immature Gran % 0.3 Seg Neutrophils % 78.7 Lymphocytes % 13.8 Monocytes % 6.5 Eosinophils % 0.5 Basophils % 0.2 Neutrophils # 10.0 H Lymphocytes # 1.8 Monocytes # 0.8 Eosinophils # 0.1 Basophils # 0.0 POC Glucose 107 H 102 H 04/30/17 11:12 WBC RBC Hgb Hct MCV MCH MCHC RDW Plt Count MPV Immature Gran % Seg Neutrophils % Lymphocytes % Monocytes % Eosinophils % Basophils % Neutrophils # Lymphocytes # Monocytes # Eosinophils # Basophils # POC Glucose 121 H
[2017-04-30] MEDS: Prenatal Vit/FA 1 EACH TABLET PO SCH (14:43)
[2017-05-01] MEDS: *HR* OxyCODONE/APAP 5/325 TABLET PO PRN ×3 (00:05→08:21)
[2017-05-01] MEDS: Ibuprofen 600 MG TABLET PO PRN ×2 (03:57→08:20)
--- NOTE | 2017-05-01 08:01 | Discharge Summary ---
Date of Encounter: 05/01/17 Time of Encounter: 07:59 - Discharge Diagnosis (1) Status post repeat low transverse section Priority: Primary Status: Acute Comments: Continue routine postop/ care Follow up with Dr. Tan in 2 weeks (2) Status post tubal ligation Priority: Secondary Status: Acute Comments: Continue routine postop care (3) Chronic hypertension affecting Priority: Secondary Status: Acute Comments: Will continue labetalol 200mg po BID (4) Breast feeding status of mother Priority: Secondary Status: Acute Comments: support prn - Discharge Medications Prescriptions: OxyCODONE/APAP 5/325 [Percocet 5/325 MG] 1 each PO Q4HR PRN #30 tablet PRN Reason: Moderate pain 4-6 Ibuprofen [Motrin] 600 mg PO Q6HR PRN #60 tablet PRN Reason: Cramping Breast Pump [BREAST PUMP] 1 each .ROUTE AD #1 each Home Medications: Breast Pump [BREAST PUMP] 1 each .ROUTE AD #1 each 05/01/17 [Rx] Ibuprofen [Motrin] 600 mg PO Q6HR PRN #60 tablet 05/01/17 [Rx] Labetalol [Trandate] 200 mg PO BID tablet 05/01/17 [Rx] OxyCODONE/APAP 5/325 [Percocet 5/325 MG] 1 each PO Q4HR PRN #30 tablet 05/01/17 [Rx] Vit/FA 1 each PO DAILY tablet 05/01/17 [Rx] Allergies/Adverse Reactions: 3 Allergy/AdvReac Type Severity Reaction Status Date / Time sumatriptan [From Imitrex] Allergy Anxiety Verified 04/04/17 23:37 tramadol Allergy See Verified 04/26/17 12:14 Comments clavulanic acid AdvReac Vomiting Verified 04/04/17 23:37 [From Augmentin] metoclopramide [From Reglan] AdvReac Vomiting Verified 04/04/17 23:37 Data Procedures and tests throughout hospitalization: Laboratory Tests 04/29/17 04/29/17 04/29/17 01:45 01:45 01:45 WBC 14.1 H RBC 3.72 L Hgb 11.3 L Hct 33.4 L MCV 89.8 MCH 30.4 MCHC 33.8 RDW 15.1 H Plt Count 196 MPV 11.2 Immature Gran % 0.6 Seg Neutrophils % 72.0 Lymphocytes % 20.4 Monocytes % 5.8 Eosinophils % 1.1 Basophils % 0.1 Neutrophils # 10.1 H Lymphocytes # 2.9 Monocytes # 0.8 Eosinophils # 0.2 Basophils # 0.0 BUN Creatinine Est GFR ( Amer) Est GFR (Non-Af Amer) BUN/Creatinine Ratio POC Glucose Uric Acid AST ALT Lactate Dehydrogenase Urine Creatinine 27 Protein/Creatinin Ratio 0.26 H Urine Total Protein < 7 Urine Opiates Screen Negative Ur Barbiturates Screen Negative Ur Phencyclidine Scrn Negative Ur Amphetamines Screen Negative U Benzodiazepines Scrn Negative Urine Cocaine Screen Negative U Marijuana (THC) Screen Negative 04/29/17 04/29/17 04/29/17 01:45 18:22 23:50 WBC RBC Hgb Hct MCV MCH MCHC RDW Plt Count MPV Immature Gran % Seg Neutrophils % Lymphocytes % Monocytes % Eosinophils % Basophils % Neutrophils # Lymphocytes # Monocytes # Eosinophils # Basophils # BUN 10 Creatinine 0.65 Est GFR ( Amer) > 60 Est GFR (Non-Af Amer) > 60 BUN/Creatinine Ratio 15 POC Glucose 107 H 102 H Uric Acid 5.4 AST 14 ALT 8 Lactate Dehydrogenase 173 Urine Creatinine Protein/Creatinin Ratio Urine Total Protein Urine Opiates Screen Ur Barbiturates Screen Ur Phencyclidine Scrn Ur Amphetamines Screen U Benzodiazepines Scrn Urine Cocaine Screen U Marijuana (THC) Screen 04/30/17 04/30/17 05:50 11:12 WBC 12.7 H RBC 3.17 L Hgb 9.4 L D Hct 28.7 L MCV 90.5 MCH 29.7 MCHC 32.8 RDW 15.3 H Plt Count 165 MPV 11.2 Immature Gran % 0.3 Seg Neutrophils % 78.7 Lymphocytes % 13.8 Monocytes % 6.5 Eosinophils % 0.5 Basophils % 0.2 Neutrophils # 10.0 H Lymphocytes # 1.8 Monocytes # 0.8 Eosinophils # 0.1 Basophils # 0.0 BUN Creatinine Est GFR ( Amer) Est GFR (Non-Af Amer) BUN/Creatinine Ratio POC Glucose 121 H Uric Acid AST ALT Lactate Dehydrogenase Urine Creatinine Protein/Creatinin Ratio Urine Total Protein Urine Opiates Screen Ur Barbiturates Screen Ur Phencyclidine Scrn Ur Amphetamines Screen U Benzodiazepines Scrn Urine Cocaine Screen U Marijuana (THC) Screen Labs on day of discharge: Labs from last 24 hours 04/30/17 11:12 POC Glucose 121 H Date of admission: 04/29/17 07:41 Discharging clinician: Elo Tadeo Anticipated date of discharge: 05/01/17 - Patient Status Disposition: Home, Self-Care Condition: Good Functional capacity at discharge: independent ambulation - Discharge Instructions Follow Up With: Иван Tan MD [Partnered Physician] - - Diet and Activity Activity: increase activity as tolerated Diet: diabetic diet Hospital Course Procedures: OARRs report reviewed by Elo Tadeo CNM Delivery: section Episiotomy: none Laceration: none Other procedures: tubal ligation complications: none Discharge diagnosis: delivery [place] baby: female (breast feeding) Time Attestation: Total time spent providing and/or coordinating discharge services: Time Spent: Less than 30 minutes - VTE Reasons for not Prescribing Prophylaxis: Treatment not Indicated - Low risk for VTE Documentation of Mechanical Device: Intermittent pneumatic compression device Exam - Constitutional Vitals: Temp Pulse Resp BP Pulse Ox 97.6 F 80 16 106/62 98 05/01/17 04:45 05/01/17 04:45 05/01/17 04:45 05/01/17 04:45 05/01/17 04:45 General appearance IM: A&O X 3, pleasant, answers questions appropriately - Respiratory Respiratory exam: Present: CTAB - Cardiovascular Cardiovascular exam IM: Present: RRR, +S1, +S2 - GI/Abdominal GI/Abdominal exam IM: normal bowel sounds - Uterine Tone: Firm Uterus Position: 2 Fingers Below Umbilicus, Midline - Extremities Exam Extremities exam IM: Present: full ROM, normal capillary refill, normal inspection - Neurological Exam Neurological exam: alert, oriented X3, reflexes normal
[2017-05-01 08:05] VITALS: BP 100/62
[2017-05-01] MEDS: Prenatal Vit/FA 1 EACH TABLET PO SCH (08:20)
== END 2017-05-01 13:00 | disposition home or self-care (01) | DRG 540 ==
LOC: 1NENULAB → 1NENUOBS 13:34
PROVIDERS: ADMIT Obstetrics & Gynecology; ATTEND Obstetrics & Gynecology

== ENCOUNTER 2017-05-10 16:25 | Inpatient (IN) ==
--- NOTE | 2017-05-10 17:24 | Emergency Department Note ---
Disposition Clinical Impression: Wound infection following section, Disposition: Admitted As Inpatient Condition: Fair General Adult HPI - General Chief complaint: ED Wound/Laceration Stated complaint: Post wound/pain x 11 days Time Seen by Provider: 05/10/17 17:17 - History of Present Illness Pain Scale: 7 - Related Data Home Medications Medication Instructions Recorded Confirmed raNITIdine HCl [Ranitidine HCl] 150 mg PO BID 05/10/17 05/10/17 Previous Rx's Medication Instructions Recorded Ibuprofen [Motrin] 600 mg PO Q6HR PRN #60 tablet 05/01/17 Ibuprofen [Motrin] 600 mg PO Q6HR PRN tablet 05/12/17 OxyCODONE/APAP 5/325 [Percocet 1 each PO Q4HR PRN #30 tablet 05/12/17 5/325 MG] Sertraline [Zoloft] 50 mg PO DAILY tablet 05/12/17 Sertraline [Zoloft] 50 mg PO DAILY #30 tablet 05/12/17 metroNIDAZOLE [Flagyl] 500 mg PO BID #20 tablet 05/12/17 Allergies Allergy/AdvReac Type Severity Reaction Status Date / Time sumatriptan [From Imitrex] Allergy Anxiety Verified 05/10/17 20:32 tramadol Allergy See Verified 05/10/17 20:32 Comments clavulanic acid AdvReac Vomiting Verified 05/10/17 20:32 [From Augmentin] metoclopramide [From Reglan] AdvReac Vomiting Verified 05/10/17 20:32 Past Medical History - Past Medical History Medical history: Reports: hypertension, migraine Surgical history: Reports: , cholecystectomy, orthopedic, other, sinus surgery, other Psychiatric history: Reports: anxiety, depression TECHNICAL ADJUSTER history: Reports: no TECHNICAL ADJUSTER history - Social History Smoking Status: Former smoker Smokeless Tobacco Status: No Alcohol use: Reports: none Drug use: Reports: none Course Vital Signs Temperature 97.5 F L 05/10/17 16:26 Pulse Rate 62 05/10/17 16:26 Respiratory Rate 16 05/10/17 16:26 Blood Pressure 148/79 05/10/17 16:26 O2 Sat by Pulse Oximetry 99 05/10/17 16:26 Temperature 97.8 F 05/12/17 07:40 Pulse Rate 62 05/12/17 07:40 Respiratory Rate 18 05/12/17 07:40 Blood Pressure 130/75 05/12/17 07:40 O2 Sat by Pulse Oximetry 97 05/12/17 03:52 Oxygen Delivery Oxygen Delivery Room Air Medical Decision Making - Lab Data Result diagrams: 05/11/17 08:49 05/10/17 18:35 Lab Results 05/10/17 05/10/17 05/11/17 Range/Units 18:35 18:35 07:57 WBC 8.0 (4.3-11.1) K/mcL RBC 3.55 L (3.82-4.97) M/mcL Hgb 10.3 L (11.5-15.4) g/dL Hct 32.8 L (35.3-44.9) % MCV 92.4 (83.0-100.0) fL MCH 29.0 (28.0-33.3) pg MCHC 31.4 L (31.6-35.5) g/dL RDW 14.4 (11.5-14.5) % Plt Count 273 (140-400) K/mcL MPV 10.4 (9.4-12.4) fL Immature Gran % 0.9 (0-4) % Seg Neutrophils % 58.6 % Lymphocytes % 32.4 % Monocytes % 5.5 % Eosinophils % 2.1 % Basophils % 0.5 % Neutrophils # 4.7 (1.6-8.9) K/mcL Lymphocytes # 2.6 (0.6-4.6) K/mcL Monocytes # 0.4 (0.0-1.3) K/mcL Eosinophils # 0.2 (0.0-0.6) K/mcL Basophils # 0.0 (0.0-0.2) K/mcL Sodium 137 (136-145) mEq/L Potassium 4.4 (3.5-4.5) mEq/L Chloride 107 (98-109) mEq/L Carbon Dioxide 22 (19-29) mEq/L BUN 13 (7-20) mg/dL Creatinine 1.08 (0.57-1.11) mg/dL Est GFR ( Amer) > 60 (> 60) Est GFR (Non-Af Amer) 60 (> 60) BUN/Creatinine Ratio 12 (6-26) Glucose 77 (70-99) mg/dL POC Glucose 86 (58-89) Calculated Osmolality 283 (280-300) Calcium 9.1 (8.6-10.8) mg/dL Total Bilirubin 0.3 (0.2-1.2) mg/dL AST 14 (5-34) Units/L ALT 10 (0-55) Units/L Alkaline Phosphatase 69 (38-126) Units/L Serum Total Protein 7.3 (6.0-8.3) g/dL Albumin 3.1 L (3.5-5.0) g/dL Globulin 4.2 H (2.4-3.5) g/dL Albumin/Globulin Ratio 0.7 L (1.1-2.2) 05/11/17 Range/Units 08:49 WBC 7.8 (4.3-11.1) K/mcL RBC 3.90 (3.82-4.97) M/mcL Hgb 11.5 (11.5-15.4) g/dL Hct 35.6 (35.3-44.9) % MCV 91.3 (83.0-100.0) fL MCH 29.5 (28.0-33.3) pg MCHC 32.3 (31.6-35.5) g/dL RDW 14.5 (11.5-14.5) % Plt Count 263 (140-400) K/mcL MPV 10.4 (9.4-12.4) fL Immature Gran % 0.8 (0-4) % Seg Neutrophils % 67.0 % Lymphocytes % 23.4 % Monocytes % 6.0 % Eosinophils % 2.3 % Basophils % 0.5 % Neutrophils # 5.3 (1.6-8.9) K/mcL Lymphocytes # 1.8 (0.6-4.6) K/mcL Monocytes # 0.5 (0.0-1.3) K/mcL Eosinophils # 0.2 (0.0-0.6) K/mcL Basophils # 0.0 (0.0-0.2) K/mcL Sodium (136-145) mEq/L Potassium (3.5-4.5) mEq/L Chloride (98-109) mEq/L Carbon Dioxide (19-29) mEq/L BUN (7-20) mg/dL Creatinine (0.57-1.11) mg/dL Est GFR ( Amer) (> 60) Est GFR (Non-Af Amer) (> 60) BUN/Creatinine Ratio (6-26) Glucose (70-99) mg/dL POC Glucose (58-89) Calculated Osmolality (280-300) Calcium (8.6-10.8) mg/dL Total Bilirubin (0.2-1.2) mg/dL AST (5-34) Units/L ALT (0-55) Units/L Alkaline Phosphatase (38-126) Units/L Serum Total Protein (6.0-8.3) g/dL Albumin (3.5-5.0) g/dL Globulin (2.4-3.5) g/dL Albumin/Globulin Ratio (1.1-2.2) Attestation Statement - Attestation Attestation: I examined this patient and my medical decision-making was reviewed with the Resident Physician. I agree with the documented findings, disposition and treatment plan as described except to the extent set forth below. [id number] time provided Patient complains of increasing pain from her incision as well as foul smelling drainage. She has slight wound separation of the margins to the left lateral most portion. Some serosanguineous drainage. She saw the sweeper driver yesterday and had cultures obtained. Per the patient described corynebacterium but sensitivities were not yet resulted. She is already taking Bactrim and Cipro.
[2017-05-10] MEDS ORDERED: Vancomycin 1,000 MG in D5% in Water 250 ML IVPB ONE (17:40)
--- NOTE | 2017-05-10 18:08 | Emergency Department Note ---
Disposition Clinical Impression: Wound infection following section, Disposition: Admitted As Inpatient Condition: Fair Time of Disposition: 20:23 General Adult HPI - General Chief complaint: ED Wound/Laceration Stated complaint: Post wound/pain x 11 days Time Seen by Provider: 05/10/17 17:17 Source: patient Mode of arrival: EMS Limitations: no limitations Nursing Notes Reviewed: Yes Vital Signs Reviewed: Yes - History of Present Illness HPI Narrative: Patient is a 31-year-old female with a past medical history of metabolic syndrome, DM, and on April 29, 2017 she is presenting with a complaint of drainage has been going on for the past week. The patient states that her symptoms started 1 week ago when she had pus drainage from her wound scar she discussed this with her benefits counselor Елена who started the patient on ciprofloxacin and Bactrim which the patient states she has been taking. Her cultures came back positive for corynebacterium however sensitivities were not performed. She states that she has been talking with her benefits counselor on the phone and they recommended that she come in for admission for IV antibiotics. Hollow Handle Knife Assembler Елена works underneath Dr. Tan who is the patient's OB. Patient denies any fevers or chills. She does complain of tenderness around the area of her . She states on prior C-sections she has had to have the wounds packed and drained with a wick. Pain Scale: 8 - Related Data Home Medications Medication Instructions Recorded Confirmed Ciprofloxacin HCl [Cipro] 500 mg PO BID 05/10/17 05/10/17 OxyCODONE/APAP 5/325 [Percocet 1 tab PO Q4HR PRN 05/10/17 05/10/17 5/325 MG] Sulfamethoxazole/Trimeth DS 1 tab PO BID 05/10/17 05/10/17 [Bactrim DS] raNITIdine HCl [Ranitidine HCl] 150 mg PO BID 05/10/17 05/10/17 Previous Rx's Medication Instructions Recorded Ibuprofen [Motrin] 600 mg PO Q6HR PRN #60 tablet 05/01/17 Allergies Allergy/AdvReac Type Severity Reaction Status Date / Time sumatriptan [From Imitrex] Allergy Anxiety Verified 05/10/17 20:32 tramadol Allergy See Verified 05/10/17 20:32 Comments clavulanic acid AdvReac Vomiting Verified 05/10/17 20:32 [From Augmentin] metoclopramide [From Reglan] AdvReac Vomiting Verified 05/10/17 20:32 Review of Systems: Constitutional: No fever, no chills Vision: No vision changes ENT: No rhinorrhea Respiratory: No cough Allergic: No allergies : No blood in urine, no dysuria GI: abdominal pain with pus drainage from wound Hematologic: No bruising Dermatologic: No skin rash Musculoskeletal: No pain in the extremities Neuro: No numbness of the extremities All systems ED: reviewed and negative except as stated. Review of Systems: As Per HPI Past Medical History - Past Medical History Medical history: Reports: hypertension, migraine Surgical history: Reports: , cholecystectomy, orthopedic, other, sinus surgery, other Psychiatric history: Reports: anxiety, depression EXTENSION FORESTER history: Reports: no EXTENSION FORESTER history - Social History Smoking Status: Former smoker Smokeless Tobacco Status: No Alcohol use: Reports: none Drug use: Reports: none Physical Exam CONSTITUTIONAL: Alert and oriented X3, well-nourished, well appearing, in no apparent distress HEAD: Normocephalic; atraumatic. EYES: PERRL, no scleral icterus. NOSE: The nose is normal in appearance without rhinorrhea RESP: Normal chest excursion with respiration; breath sounds clear and equal bilaterally; no wheezes, rhonchi, or rales CARD: Regular rhythm, without murmurs, rub or gallop ABD: Non-distended; non-tender, soft,without rigidity, rebound or guarding. Patient has a wound that is about 25 cm in length. The wound does appear to be open however there is no surrounding erythema. The wound is not actively draining at this time. The wound does have an area of surrounding induration that is about 3 cm in diameter. SKIN: Normal for age and race; warm and dry; no apparent lesions Course Course Narrative: Patient is a 31-year-old female with past medical history of diabetes presenting with the complaint of the wound that is draining pus for the past week. She has been on double antibiotic therapy for one week the cultures came back positive for corynebacterium without sensitivities. Patient' s physical exam did not appreciate a wound with surrounding induration however no drainage at this time and no signs of cellulitis. Checking the Barndt guide the bacteria is sensitive to vancomycin. Plan is to do a CT of the abdomen and pelvis with IV contrast will check basic labs also start the patient on IV antibiotics. Patient agrees with this plan. - Reevaluation(s) Reevaluation #1: Patient's labs came back unremarkable for infection. There is evidence of abscess on CT scan as well as persistent fluid within the endometrial canal presumably retained fluid and blood products. I discussed these findings with the benefits counselor on-call Nancy. She discussed his findings with Dr. Sepulveda who agrees to accept the patient into their service for admission. I discussed this with the patient and patient agrees with this plan. The patient also asked for additional pain medication. Time: 20:26 Vital Signs Temperature 97.5 F L 05/10/17 16:26 Pulse Rate 62 05/10/17 16:26 Respiratory Rate 16 05/10/17 16:26 Blood Pressure 148/79 05/10/17 16:26 O2 Sat by Pulse Oximetry 99 05/10/17 16:26 Temperature 97.8 F 05/11/17 07:52 Pulse Rate 68 05/11/17 07:52 Respiratory Rate 16 05/11/17 07:52 Blood Pressure 114/64 05/11/17 07:52 O2 Sat by Pulse Oximetry 96 05/11/17 07:52 Oxygen Delivery Oxygen Delivery Room Air Medical Decision Making - Medical Records Medical records reviewed: Yes I reviewed the patient's medical records. - Lab Data Lab results reviewed: Yes I reviewed the patient's lab results. Result diagrams: 05/11/17 08:49 05/10/17 18:35 Lab Results 05/10/17 05/10/17 Range/Units 18:35 18:35 WBC 8.0 (4.3-11.1) K/mcL RBC 3.55 L (3.82-4.97) M/mcL Hgb 10.3 L (11.5-15.4) g/dL Hct 32.8 L (35.3-44.9) % MCV 92.4 (83.0-100.0) fL MCH 29.0 (28.0-33.3) pg MCHC 31.4 L (31.6-35.5) g/dL RDW 14.4 (11.5-14.5) % Plt Count 273 (140-400) K/mcL MPV 10.4 (9.4-12.4) fL Immature Gran % 0.9 (0-4) % Seg Neutrophils % 58.6 % Lymphocytes % 32.4 % Monocytes % 5.5 % Eosinophils % 2.1 % Basophils % 0.5 % Neutrophils # 4.7 (1.6-8.9) K/mcL Lymphocytes # 2.6 (0.6-4.6) K/mcL Monocytes # 0.4 (0.0-1.3) K/mcL Eosinophils # 0.2 (0.0-0.6) K/mcL Basophils # 0.0 (0.0-0.2) K/mcL Sodium 137 (136-145) mEq/L Potassium 4.4 (3.5-4.5) mEq/L Chloride 107 (98-109) mEq/L Carbon Dioxide 22 (19-29) mEq/L BUN 13 (7-20) mg/dL Creatinine 1.08 (0.57-1.11) mg/dL Est GFR ( Amer) > 60 (> 60) Est GFR (Non-Af Amer) 60 (> 60) BUN/Creatinine Ratio 12 (6-26) Glucose 77 (70-99) mg/dL Calculated Osmolality 283 (280-300) Calcium 9.1 (8.6-10.8) mg/dL Total Bilirubin 0.3 (0.2-1.2) mg/dL AST 14 (5-34) Units/L ALT 10 (0-55) Units/L Alkaline Phosphatase 69 (38-126) Units/L Serum Total Protein 7.3 (6.0-8.3) g/dL Albumin 3.1 L (3.5-5.0) g/dL Globulin 4.2 H (2.4-3.5) g/dL Albumin/Globulin Ratio 0.7 L (1.1-2.2) - Radiology Data Radiology results reviewed: Yes I reviewed the patient's radiology results. Abdomen/Pelvis CT 05/10/17 17:39 IMPRESSION: There has been interval development of an rim enhancing fluid collection at the section incision site, most compatible with an abscess. There is persistent fluid within the endometrial canal, presumably retained fluid and blood products. Retained products of conception and endometritis remain in the differential. D/ / Kolby Thomas MD / Kolby Thomas MD Interpreting Provider: Kolby Thomas MD
[2017-05-10] MEDS ORDERED: *HR* Morphine 2 MG/ML SYRINGE IVP ONE (18:13)
[2017-05-10 18:43] LABS: Basophils % 0.5 %; Eosinophils # 0.2 K/mcL (0.0-0.6); Eosinophils % 2.1 %; Hematocrit 32.8 % (35.3-44.9); Hemoglobin 10.3 g/dL (11.5-15.4); Immature Granulocytes % 0.9 % (0-4); Lymphocytes # 2.6 K/mcL (0.6-4.6); Lymphocytes % 32.4 %; Mean Corpuscular HGB Conc 31.4 g/dL (31.6-35.5); Mean Corpuscular Volume 92.4 fL (83.0-100.0); Mean Platelet Volume 10.4 fL (9.4-12.4); Monocytes # 0.4 K/mcL (0.0-1.3); Monocytes % 5.5 %; Neutrophils # 4.7 K/mcL (1.6-8.9); Platelet Count 273 K/mcL (140-400); Red Blood Count 3.55 M/mcL (3.82-4.97); Red Cell Distribution Width 14.4 % (11.5-14.5); Segmented Neutrophils % 58.6 %
[2017-05-10 18:57] LABS: Alanine Aminotransferase 10 Units/L (0-55); Albumin 3.1 g/dL (3.5-5.0); Albumin/Globulin Ratio 0.7 (1.1-2.2); Alkaline Phosphatase 69 Units/L (38-126); Aspartate Amino Transferase 14 Units/L (5-34); BUN/Creatinine Ratio 12 (6-26); Bilirubin,Total 0.3 mg/dL (0.2-1.2); Blood Urea Nitrogen 13 mg/dL (7-20); Calcium 9.1 mg/dL (8.6-10.8); Carbon Dioxide 22 mEq/L (19-29); Chloride 107 mEq/L (98-109); Globulin 4.2 g/dL (2.4-3.5); Glucose 77 mg/dL (70-99); Osmolality,Calculated 283 (280-300); Potassium 4.4 mEq/L (3.5-4.5); Sodium 137 mEq/L (136-145); Total Protein 7.3 g/dL (6.0-8.3); eGFR For African Americans > 60 (> 60); eGFR For Non-African Americans 60 (> 60)
[2017-05-10] MEDS ORDERED: Ketorolac 15 MG/ML VIAL IVP ONE (19:04)
[2017-05-10] MEDS ORDERED: *HR* HYDROmorphone (PF) 1 MG/ML SYRINGE IVP ONE (20:23)
[2017-05-10] MEDS ORDERED: *HR* HYDROmorphone (PF) 1 MG/ML SYRINGE ONE (20:26)
[2017-05-11] MEDS ORDERED: *HR* HYDROmorphone (PF) 1 MG/ML SYRINGE IVP ONE (00:38)
[2017-05-11] MEDS ORDERED: Vancomycin 2,000 MG in D5% in Water 250 ML IVPB SCH (01:00)
[2017-05-11] MEDS: *HR* OxyCODONE/APAP 5/325 TABLET PO PRN ×5 (01:03→22:35)
--- NOTE | 2017-05-11 02:09 | OB/GYN History & Physical ---
Date of Encounter: 05/11/17 Time of Encounter: 02:05 Assessment and Plan (1) Breast feeding status of mother Current visit: No Status: Acute (2) section wound complication Current visit: No Status: Acute CT shows within the anterior pelvic wall, there has been development of an irregular rim enhancing fluid collection measuring 17.5 (transverse) x 2.6 (AP) x 3.5 (craniocaudal) cm. concerning for abscess. Pt started on Vancomycin in ED. Admit for observation and continue IV antibiotic. (3) NIDDY (non-insulin dependent diabetes mellitus in young) Current visit: No Status: Acute Will check fasting accucheck in am. Pt reports sugars have been well controlled with diet both during and following . (4) Obesity affecting in third trimester, antepartum Current visit: No Status: Acute SCDs ordered. (5) depression Current visit: Yes Status: Acute Pt desires to start zoloft and is agreeable to meet with SW. Consult ordered. History of Present Illness Chief complaint: incisional abscess HPI: Ms. Nina is a 31 year old female with a past medical history of metabolic syndrome, DM, and on April 29, 2017. She is presenting with a complaint of drainage has been going on for the past week. The patient states that her symptoms started 1 week ago when she had pus drainage from her wound scar. She was seen in clinic and was started on Cipro and Bactrim. Her wound culture came back positive for corynebacterium however sensitivities are still pending. She denies any fevers or chills but reports the hard area around her incision has gotten bigger. She also complains of tenderness around the area of her . She states on prior C-sections she has had to have the wounds packed and drained with a wick. Past Med Surg Social Fam HX - Past Medical History Medical history: diabetes, GERD, hypertension, migraine Psychiatric history: anxiety, depression - Past Surgical History Surgical History: , cholecystectomy, orthopedic, other, sinus surgery, other - Social History Smoking Status: Former smoker Smokeless Tobacco Status: No Alcohol use: none Drug use: none - Family History Father Family Member Ethnicity: Non- Living Status: Still Living Hx Family Cardiac Disorders: No Hx Family Respiratory Disorders: No Hx Family Cancer: No Hx Family GI Disorders: No Hx Family Endocrine Disorder: Yes (DM) Hx Family Neuromuscular Disorders: No Hx Family Neurologic Disorders: No Hx Family HEENT Disorders: No Hx Family Autoimmune Disorders: No Medications and Allergies Ibuprofen [Motrin] 600 mg PO Q6HR PRN #60 tablet 05/01/17 [Rx] Ciprofloxacin HCl [Cipro] 500 mg PO BID 05/10/17 [History] OxyCODONE/APAP 5/325 [Percocet 5/325 MG] 1 tab PO Q4HR PRN 05/10/17 [History] Sulfamethoxazole/Trimeth DS [Bactrim DS] 1 tab PO BID 05/10/17 [History] raNITIdine HCl [Ranitidine HCl] 150 mg PO BID 05/10/17 [History] 3 Allergy/AdvReac Type Severity Reaction Status Date / Time sumatriptan [From Imitrex] Allergy Anxiety Verified 05/10/17 20:32 tramadol Allergy See Verified 05/10/17 20:32 Comments clavulanic acid AdvReac Vomiting Verified 05/10/17 20:32 [From Augmentin] metoclopramide [From Reglan] AdvReac Vomiting Verified 05/10/17 20:32 Review of System OB - Constitutional Constitutional ROS IM: no chills, no fever(s) - Cardiovascular Cardiovascular: no chest pain, no dyspnea - Respiratory Respiratory: no dyspnea on exertion, no chest congestion - Gastrointestinal Gastrointestinal: no nausea, no vomiting - Genitourinary Genitourinary: no breast pain, no breast skin changes, no dysuria - Integumentary Integumentary: as per HPI - Psychiatric Psychiatric: depression (she reports frequent tearful episodes for which she desires treatment), mood swings, no auditory hallucinations, no hallucinations, no suicidal ideation Exam - Vital Signs Vital signs: Initial Vital Signs Temp Pulse Resp BP Pulse Ox 97.5 F L 62 16 148/79 99 05/10/17 16:26 05/10/17 16:26 05/10/17 16:26 05/10/17 16:26 05/10/17 16:26 - Constitutional Constitutional: well developed, well nourished, no acute distress, morbidly obese - HEENT HEENT: Mucus Membranes Moist - Lungs Respiratory exam: CTAB - Cardiovascular Cardiovascular exam: RRR - Breasts Breast: bilateral: normal - Abdomen Abdomen: Present: bowel sounds normal. Absent: guarding noted - Extremities Extremities exam: pedal edema (bilateral, no redness or warmth) Results Result Diagrams: 05/10/17 18:35 05/10/17 18:35 Abnormal lab results RBC 3.55 M/mcL (3.82-4.97) L 05/10/17 18:35 Hgb 10.3 g/dL (11.5-15.4) L 05/10/17 18:35 Hct 32.8 % (35.3-44.9) L 05/10/17 18:35 MCHC 31.4 g/dL (31.6-35.5) L 05/10/17 18:35 Albumin 3.1 g/dL (3.5-5.0) L 05/10/17 18:35 Globulin 4.2 g/dL (2.4-3.5) H 05/10/17 18:35 Albumin/Globulin Ratio 0.7 (1.1-2.2) L 05/10/17 18:35 All other labs normal.
[2017-05-11] MEDS: Vancomycin 1,500 MG in D5% in Water 250 ML IVPB SCH ×2 (05:38→18:08)
--- NOTE | 2017-05-11 08:36 | OB/GYN Progress Note ---
Date of Encounter: 05/11/17 Time of Encounter: 08:32 - Assessment and Plan (1) Wound infection Current Visit: Yes Status: Acute s/p C/S POD#12 with a wound infection, healing well, I explained to the patient that based on my physical exam and how the incision looks at this time, I don't feel it is best to try to open the wound at this time, it is not draining, no erythema or induration. I counseled her that we will keep the antibiotics running and repeat the CT scan to see if the abscess, possibly seroma has decreased. Further management will depend on the results. She agreed. Cont current in care. Subjective - Subjective Interval history: saw and examined patient, she is doing well, no fevers, chills, nausea or vomiting, she reports that over night to this AM, she has had 4-5 pads that have been soaked from the incision with what looks like serosanguinous fluid based on her description("pinkish fluid"). She is ambulating and tolerating PO. She says her pain is not under control. Objective - Vital Signs Latest vital signs: Vital Signs Temp Pulse Resp BP Pulse Ox 05/11/17 03:56 98.1 F 72 18 130/72 98 05/11/17 00:41 97.9 F 70 16 128/74 98 05/10/17 21:20 97.7 F 62 16 134/69 100 05/10/17 20:48 16 141/72 Intake and Output 05/10/17 05/11/17 05/11/17 23:59 07:59 15:59 Intake Total 250 / 250 500 / 500 Output Total 1000 / 1000 Balance 250 / 250 -1000 / -1000 500 / 500 Intake: IV Fluids 250 / 250 Vancocin 1,000 MG In Dextrose 5 250 / 250 % 250 ML @ 167 mls/hr IVPB ONCE ONE Rx#:[id number] Oral 500 / 500 Output: Urine 1000 / 1000 Other: Stool Size Small Stool Characteristics Normal for Patient Normal for Patient Weight 142.4 kg - I&O's I&O's: Intake & Output 05/08/17 05/09/17 05/10/17 05/11/17 23:59 23:59 23:59 23:59 Intake Total 250 / 250 500 / 500 Output Total 1000 / 1000 Balance 250 / 250 -500 / -500 Weight 142.4 kg - Exam Lungs: bilateral: normal Chest: Normal S1, Normal S2 Extremities: Present: normal Abdomen: Present: soft Incision OB: Present: dry, intact - Labs Labs: Abnormal lab results RBC 3.55 M/mcL (3.82-4.97) L 05/10/17 18:35 Hgb 10.3 g/dL (11.5-15.4) L 05/10/17 18:35 Hct 32.8 % (35.3-44.9) L 05/10/17 18:35 MCHC 31.4 g/dL (31.6-35.5) L 05/10/17 18:35 Albumin 3.1 g/dL (3.5-5.0) L 05/10/17 18:35 Globulin 4.2 g/dL (2.4-3.5) H 05/10/17 18:35 Albumin/Globulin Ratio 0.7 (1.1-2.2) L 05/10/17 18:35 Consult Discharge Plan - Plan Referrals: Antoinette Murillo, [employer] [Primary Care Provider] -
[2017-05-11 09:06] LABS: Basophils % 0.5 %; Eosinophils # 0.2 K/mcL (0.0-0.6); Eosinophils % 2.3 %; Hematocrit 35.6 % (35.3-44.9); Hemoglobin 11.5 g/dL (11.5-15.4); Immature Granulocytes % 0.8 % (0-4); Lymphocytes # 1.8 K/mcL (0.6-4.6); Lymphocytes % 23.4 %; Mean Corpuscular HGB Conc 32.3 g/dL (31.6-35.5); Mean Corpuscular Hemoglobin 29.5 pg (28.0-33.3); Mean Corpuscular Volume 91.3 fL (83.0-100.0); Mean Platelet Volume 10.4 fL (9.4-12.4); Monocytes # 0.5 K/mcL (0.0-1.3); Neutrophils # 5.3 K/mcL (1.6-8.9); Platelet Count 263 K/mcL (140-400); Red Cell Distribution Width 14.5 % (11.5-14.5)
[2017-05-11] MEDS: Ibuprofen 600 MG TABLET PO PRN ×2 (09:37→21:03)
[2017-05-12] MEDS: Ibuprofen 600 MG TABLET PO PRN (03:54)
[2017-05-12] MEDS: *HR* OxyCODONE/APAP 5/325 TABLET PO PRN ×3 (03:54→12:18)
[2017-05-12] MEDS: Vancomycin 1,500 MG in D5% in Water 250 ML IVPB SCH (06:35)
[2017-05-12 08:14] VITALS: BP 130/75
--- NOTE | 2017-05-12 12:02 | Discharge Summary ---
Date of Encounter: 05/12/17 Time of Encounter: 12:03 - Discharge Diagnosis (1) section wound complication Priority: Primary Status: Acute (2) Wound infection following section, Priority: Primary Status: Acute - Discharge Medications Prescriptions: OxyCODONE/APAP 5/325 [Percocet 5/325 MG] 1 each PO Q4HR PRN #30 tablet PRN Reason: Pain Home Medications: Ibuprofen [Motrin] 600 mg PO Q6HR PRN #60 tablet 05/01/17 [Rx] raNITIdine HCl [Ranitidine HCl] 150 mg PO BID 05/10/17 [History] Ibuprofen [Motrin] 600 mg PO Q6HR PRN tablet 05/12/17 [Rx] OxyCODONE/APAP 5/325 [Percocet 5/325 MG] 1 each PO Q4HR PRN #30 tablet 05/12/17 [Rx] Sertraline [Zoloft] 50 mg PO DAILY tablet 05/12/17 [Rx] Allergies/Adverse Reactions: 3 Allergy/AdvReac Type Severity Reaction Status Date / Time sumatriptan [From Imitrex] Allergy Anxiety Verified 05/10/17 20:32 tramadol Allergy See Verified 05/10/17 20:32 Comments clavulanic acid AdvReac Vomiting Verified 05/10/17 20:32 [From Augmentin] metoclopramide [From Reglan] AdvReac Vomiting Verified 05/10/17 20:32 Data - Impressions ITS Impressions Abdomen/Pelvis CT 05/12/17 10:30 IMPRESSION: Fluid collection seen along the subcutaneous soft tissues of the scar may be postsurgical in nature however cannot exclude the possibility of an early abscess. There is no evidence for air-fluid level within the fluid collection or significant peripheral enhancement. D/ / 05/12/2017 11:49:19 Rich Strange MD / [email or web address] Interpreting Provider: Rich Strange MD Date of admission: 05/11/17 12:25 Primary care physician: Antoinette Murillo CNP Discharging clinician: Annamarie Babin Anticipated date of discharge: 05/12/17 - Patient Status Disposition: Home, Self-Care Condition: Fair Functional capacity at discharge: independent ambulation Overall status at discharge: patient is back to baseline - Discharge Instructions Follow Up With: Antoinette Murillo CNP [Primary Care Provider] - Иван Tan MD [Partnered Physician] - - Diet and Activity Activity: resume usual activities as tolerated Diet: regular diet 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 Treated with IV vancomycin. CT results reviewed with ya Foss to discharge home. Start po flagyl 500 BID for 10 days, follow up with Dr. Tan in office next week. Time Attestation: Total time spent providing and/or coordinating discharge services: Time Spent: Less than 30 minutes Exam - Constitutional Vitals: Temp Pulse Resp BP Pulse Ox 97.8 F 62 18 130/75 97 05/12/17 07:40 05/12/17 07:40 05/12/17 07:40 05/12/17 07:40 05/12/17 03:52 General appearance IM: A&O X 3 - Respiratory Respiratory exam: Present: CTAB - Cardiovascular Cardiovascular exam IM: Present: RRR - GI/Abdominal Incision: dry, edematous, intact, other (No redness noted, incision firm nadya wound area remains tender to touch. ) - Uterine Tone: Firm Uterus Position: 2 Fingers Below Umbilicus - Extremities Exam Extremities exam IM: Present: normal capillary refill, normal inspection - Neurological Exam Neurological exam: normal gait, oriented X3, reflexes normal - VTE Reasons for not Prescribing Prophylaxis: Treatment not Indicated - Low risk for VTE Documentation of Mechanical Device: Intermittent pneumatic compression device
[2017-05-12] MEDS ORDERED: Aminoglycoside Consult 1 EACH MC ONE (12:36)
== END 2017-05-12 12:37 | disposition home or self-care (01) | DRG 561 ==
LOC: 1NENUPED 16:25 → EMEROO 16:25 → 1NENUPED 20:55
PROVIDERS: ADMIT Obstetrics & Gynecology; ATTEND Obstetrics & Gynecology